=== PATIENT | male | born 1945 | race African-American/Black ===

== ENCOUNTER 2018-04-18 14:44 | Emergency (ER) | payer OTHER ==
[~2018-04-18] VITALS: Ht 172.7 cm; Wt 84.0 kg
[2018-04-18] MEDS ORDERED: LIDOCAINE HCL/EPINEPHRINE 1%-EPI 1:100,000 50 ML VIAL INFIL ONE (18:30)
[2018-04-18 20:29] VITALS: BP 125/64
== END 2018-04-18 20:30 | disposition home or self-care (01) ==
LOC: ER 14:44
DX: L02.01 Cutaneous abscess of face (principal)
CPT/HCPCS: 10060; 82962; 87070; 87077; 87205; 99284; J3490